=== PATIENT | male | born 1955 | race Caucasian/White ===

== ENCOUNTER → 2020-03-01 | Outpatient (CLI) | payer OTHER ==
--- NOTE | 2020-03-01 09:42 | MR ---
EXAMINATION TYPE: MR shoulder RT wo con DATE OF EXAM: 03/01/2020 COMPARISON: None. HISTORY: Rt shoulder pain, pain with difficulty raising arm over head for 7 months since falling inju ry per patient. TECHNIQUE: Multiplanar, multisequence imaging of the right shoulder is performed without contrast. FINDINGS: Rotator Cuff: There is large retracted articular surface tear involving anterior 2/3 of the distal ingram praspinatus tendon measuring 13 mm AP diameter sagittal image 8 x 13 mm transversely coronal image 12 . Some of the more posterior fibers remain intact with increased signal. Infraspinatus tendon is inta ct. Subscapularis tendon intact. Surrounding fluid is noted. Rotator cuff muscle bulk is maintained. Acromioclavicular Joint: Moderate narrowing with mild capsular hypertrophy, preservation of underlyin g fat plane. Distal acromion morphology slightly downsloping with loss of underlying fat plane. Glenohumeral Joint: Mild to moderate narrowing with small joint effusion. No significant spurring. Labrum: The labrum appears grossly intact given limitation of non-arthrogram study. Biceps Tendon: The long head of biceps is in normal location within bicipital groove. Bone marrow signal: There is a 6 mm subchondral cyst involving the lateral humeral head coronal image 14. Other: No additional significant abnormality is appreciated. IMPRESSION: 1. Retracted significant tear involving anterior 2/3-3/4 of the distal supraspinatus tendon. 2. Mild to moderate degenerative changes right shoulder, downsloping acromion with MRI evidence of un derlying impingement. Correlate clinically.
== END | disposition home or self-care (01) ==
LOC: RADMRIMAIN 08:18
DX: M19.011 Primary osteoarthritis, right shoulder (principal); S46.811A Strain of other muscles, fascia and tendons at shoulder and upper arm level, right arm, initial encounter; M25.811 Other specified joint disorders, right shoulder

== ENCOUNTER → 2020-03-24 | Outpatient (CLI) | payer OTHER | END | disposition home or self-care (01) | LOC: LABPAT 10:17 | PROVIDERS: ATTEND Orthopaedic Surgery | DX: Z53.9 Procedure and treatment not carried out, unspecified reason (principal) ==

== ENCOUNTER 2020-04-16 06:04 | Day surgery (SDC) | payer OTHER ==
--- NOTE | 2020-04-15 13:56 | HP ---
HISTORY AND PHYSICAL CHIEF COMPLAINT: Right shoulder pain. HISTORY OF PRESENT ILLNESS: The patient is a 64-year-old, left-hand dominant, retired gentleman who presents with right shoulder pain after an injury August of 2019. He fell going up some stairs, injuring his shoulder. He notes lateral pain ever since. He is having difficult time with overhead use and at night. He has tried ibuprofen without much relief. PAST MEDICAL HISTORY: Significant for neuropathy. PAST SURGICAL HISTORY: Significant for bilateral ankle surgery. CURRENT MEDICATIONS: Ibuprofen and duloxetine. ALLERGIES: He denies drug allergies. FAMILY HISTORY: Negative. SOCIAL HISTORY: Significant for occasional alcohol use. REVIEW OF SYSTEMS: Sixteen-point review of systems otherwise reviewed and is noncontributory. PHYSICAL EXAMINATION: On examination, the patient is approximately 5 feet 11 inches, 214 pounds of mesomorphic habitus. HEENT exam is nonfocal. Neck is supple. On examination of the right shoulder, he is tender about the anterior subacromial space. He has moderate subacromial crepitus. Active range of motion forward elevation 70 degrees, external rotation with arm at side 30 degrees, internal rotation to L5. Passively I am able to forward elevate him 95 degrees. Motor strength is 4 minus over 5 for abduction and external rotation. Impingement test, Neer test are positive. Speed test is positive. His distal neurovascular exam appears intact in the right upper extremity. X-rays of the right shoulder obtained in the office show a type 2 acromion with maintained humeral head to acromial distance. MRI report 03/01/2020 right shoulder shows evidence of a retracted supraspinatus tendon tear. IMPRESSION: Symptomatic right rotator cuff tear. RECOMMENDATIONS: I talked to the patient at length regarding his condition and treatment options. At this point, he is having significant pain and limitation despite previous conservative measures. After thorough discussion, he opts to proceed with surgery. We will plan to proceed with arthroscopic evaluation with probable subacromial decompression in addition to rotator cuff repair versus debridement. We will likely perform that as an outpatient procedure. Risks and benefits were discussed at length in layman's terms. MMODL / IJN: [id number] /
[~2020-04-16 06:04] MED LIST: DEXAMETHASONE SOD PHOSPHATE 4 MG/ML 1 ML VIAL IV ONE; HYDROmorphone 0.5 MG/0.5 ML SYRINGE IVP PRN; LACTATED RINGERS 1,000 ML IV SCH; LIDOCAINE 1% (10MG/ML) FOR IV START INTRADERMA PRN; MIDAZOLAM 2 MG/2 ML VIAL IV PRN; ONDANSETRON 4 MG/2 ML VIAL IVP ONE; fentaNYL (PF) 50 MCG/ML 2 ML AMP IVP PRN
[2020-04-16] MEDS ORDERED: SUCCINYLCHOLINE CHLORIDE 100 MG/5 ML SYR IV ONE (07:42)
[2020-04-16] MEDS ORDERED: LIDOCAINE 1% INJ 10MG/ML (20 ML MDV) ONE (07:42)
[2020-04-16] MEDS ORDERED: DEXAMETHASONE SOD PHOSPHATE 4 MG/ML 1 ML VIAL ONE (07:42)
[2020-04-16] MEDS ORDERED: ROPIVACAINE 5 MG/ML 30 ML VIAL ONE (07:42)
[2020-04-16] MEDS ORDERED: fentaNYL (PF) 50 MCG/ML 2 ML AMP ONE (07:42)
[2020-04-16] MEDS ORDERED: MIDAZOLAM 2 MG/2 ML VIAL ONE (07:42)
[2020-04-16] MEDS ORDERED: PROPOFOL 10 MG/ML 20 ML VIAL IV ONE (07:42)
[2020-04-16] MEDS ORDERED: SODIUM CHLORIDE 0.9% 100 ML with ceFAZolin 2,000 MG IV ONE ×2 (08:08)
--- NOTE | 2020-04-16 09:14 | P.OP ---
Date of Procedure: 04/16/20 Preoperative Diagnosis: Symptomatic right rotator cuff tear Postoperative Diagnosis: Same in addition to adhesive capsulitis Procedure(s) Performed: Right shoulder arthroscopic subacromial decompression/rotator cuff repair/manipulation under anesthesia Implants: Arthrex 5.5 mm swivel lock anchor 2 Anesthesia: SONYA, [facility] Surgeon: Feliberto Sanabria Estimated Blood Loss (ml): 10 Pathology: none sent Condition: stable Disposition: PACU Indications for Procedure: The patient's a 64-year-old gentleman who presents with persistent/progressive right shoulder weakness/stiffness/and pain despite conservative measures after a previous injury. A discussion of the risks and benefits of operative intervention versus continued conservative measures was made with patient. He opted to proceed with surgery. Operative risks to include infection, neurovascular injury, development of blood clots, possible tendon rerupture, possible postoperative stiffness and need for subsequent procedures was discussed. Informed consent was obtained. Operative Findings: As below Description of Procedure: The patient was brought to the operating room, and after induction of general anesthesia was placed in a beachchair position. A preoperative interscalene block was placed for postoperative analgesia. I examined the right shoulder. There was significant limitation of passive motion. Gentle manipulation was p erformed first with the arm at the side obtaining full external rotation. Moderate adhesions were encountered. I then obtained full forward elevation. Again I encountered moderate adhesions. The right upper extremity was prepped and draped in normal fashion. The bony outlines the acromion, distal clavicle, and coracoid process were outlined with a skin marker. The glenohumeral joint was inflated with 50 mL of saline utilizing a spinal needle from posterior approach. A posterior portal was made through a 5 mm skin incision 1 cm medial and inferior to the posterior lateral border time. A blunt trocar was used to easily into the joint. Diagnostic arthroscopy was performed. An anterior portal was made just lateral to the coracoid process entering the joint above the subscapularis tendon. The subscapularis tendon appeared to be intact. Anterior labrum was intact. The inferior recess was inspected. The posterior labrum was intact. The intra-articular portion the biceps appeared to be intact. On inspection the rotator cuff, a full-thickness tear involving the anterior aspect the supraspinatus was noted with minimal retraction. The arthroscope was placed into the subacromial space. A lateral portal was made 2 centimeters inferior to the anterior lateral border of the acromion. The rotator cuff was then mobilized with a traction suture. This was then easily brought back to the greater tuberosity. The soft tissue on the undersurface of the acromion was debrided with a motorized shaver and electrocautery clearly defining the anterior medial and lateral borders as well as the distal clavicle. An anterior inferior acromioplasty was performed with a motorized kaleb starting anterolateral, then extending this posteriorly, then extending this medially. I converted to a flat acromion and this was verified in the posterior and lateral viewing portals. The greater tuberosity was lightly decorticating with a shaver down to a bleeding bony surface. An accessory superior lateral portals made just off the lateral edge of the acromion for anchor placement. One anchor was then placed just off the articular surface with the appropriate starting awl. A 5.5 mm swivel lock anchor loaded with #2 fiber tape was placed. Good purchase was obtained. These fiber tapes were then passed the rotator cuff with a scorpion suture passer. A lateral row was created crisscrossing these tapes and utilizing the traction suture. 5.5 mm swivel lock anchor was placed laterally. Good purchase was obtained. Final arthroscopic view showed adequate compression at the footprint. The arthroscope was then removed. The portals were closed with simple 3-0 nylon sutures. A sterile dressing was applied in addition to a sling. The patient was then awoken from general anesthesia and transferred to recovery room in good condition. Blood loss was estimated at 10 mL. No complications were incurred. Sponge and needle counts were correct in the case.
[2020-04-16 09:22] VITALS: TEMP 97
[2020-04-16 10:04] VITALS: RESP 16
[2020-04-16 10:26] VITALS: BP 159/86; PULSE 70
== END 2020-04-16 11:02 | disposition home or self-care (01) ==
LOC: OR 06:04
PROVIDERS: ATTEND Orthopaedic Surgery
DX: S46.011A Strain of muscle(s) and tendon(s) of the rotator cuff of right shoulder, initial encounter (principal); M75.01 Adhesive capsulitis of right shoulder; L30.9 Dermatitis, unspecified; N40.0 Benign prostatic hyperplasia without lower urinary tract symptoms; R97.20 Elevated prostate specific antigen [PSA]; M25.572 Pain in left ankle and joints of left foot; G62.9 Polyneuropathy, unspecified; J30.9 Allergic rhinitis, unspecified; F41.9 Anxiety disorder, unspecified; Z98.890 Other specified postprocedural states; Z79.1 Long term (current) use of non-steroidal anti-inflammatories (NSAID); Z79.899 Other long term (current) drug therapy; Z90.89 Acquired absence of other organs; Z80.42 Family history of malignant neoplasm of prostate; W10.9XXA Fall (on) (from) unspecified stairs and steps, initial encounter
CPT/HCPCS: 29827; 29826; 64415; 76942; C1713 ×2; C1894; J2250; J1100; J2405; J0690; J2001; J3010; J2795; J0330; J2704

== ENCOUNTER → 2021-06-27 | Outpatient (CLI) | payer OTHER ==
--- NOTE | 2021-06-27 15:53 | CT ---
EXAMINATION TYPE: CT chest wo con DATE OF EXAM: 06/27/2021 INDICATION: pt was in [place] around the [place] and c/o of cough from exposure CT DLP: 695 mGy.cm Automated Exposure Control for Dose Reduction was Utilized. TECHNIQUE AND CONTRAST: CT scan of the chest without IV contrast administration. COMPARISON: None available. FINDINGS: Hyper translucent lungs which may suggest COPD, please correlate with pulmonary function tests. 4 mm nodule is seen at the medial aspect of the right upper lobe. Elongated 6 cm nodule along the left obl ique fissure, possibly representing a perifissural lymph node. Other scattered smaller bilateral pulm onary nodules. Unremarkable lungs otherwise. Patent central airways. No cardiomegaly. Scattered arterial atheroscler otic calcifications. No pleural or pericardial effusion. No pathologically enlarged lymph nodes in th e chest by this nonenhanced CT scan. The ascending aorta measures 4 cm. Tiny splenic hypodensity, possibly representing a splenic cyst. Il l-defined subtle hypodensity is seen at the superior aspect of the spleen measuring 8mm, for further targeted ultrasound assessment. Degenerative changes of the thoracic spine. IMPRESSION: Suspected COPD changes, please correlate with pulmonary function tests. Scattered pulmonary nodules measuring up to 6 mm as described above, nonspecific. Precautionary follo w-up CT scan in 3-6 months is advised. Other incidental findings as detailed above.
== END | disposition home or self-care (01) ==
LOC: RADCTMAIN 15:25
DX: R91.8 Other nonspecific abnormal finding of lung field (principal)
CPT/HCPCS: 71250

== ENCOUNTER → 2022-06-08 | Outpatient (CLI) | payer OTHER ==
[2022-06-08 11:17] LABS: African American GFR (CKD) >90 (>60 ml/min/1.73 sqM); Blood Urea Nitrogen 18 mg/dL (9-20); Non-African American GFR(CKD) >90 (>60 ml/min/1.73 sqM)
--- NOTE | 2022-06-08 12:18 | CT ---
EXAMINATION TYPE: CT chest w con CT DLP: 626 mGycm, Automated exposure control for dose reduction was used. DATE OF EXAM: 06/08/2022 11:51 AM COMPARISON: 09/29/2021, 06/27/2021 CLINICAL INDICATION:Male, 66 years old with history of R91.8 OTHER NONSPECIFIC ABNORMAL FINDING OF GINGER NG F, Lung nodule. TECHNIQUE: Multiple axial images were obtained through the chest. Sagittal and coronal reformats were created for review. Contrast used:100ml mL of Isovue 300 with IV Contrast Oral contrast used: none. FINDINGS: LUNGS/ PLEURA: Right upper lung medial posterior pulmonary nodule measuring 5a mm given differences i n slice selection. Left major fissure intrafissural lymph node is unchanged. AIRWAY: Patent and unremarkable. HEART: Size within normal limits. MEDIASTINUM: No gross evidence of adenopathy. VASCULATURE: No aortic aneurysm. MUSCULOSKELETAL: No acute osseous abnormalities SOFT TISSUES/LYMPH NODES: Unremarkable. LOWER NECK: Stable right thyroid nodule measuring 19 mm. UPPER ABDOMEN: Splenic hypodensity which could represent a cyst versus hemangioma. IMPRESSION: Stable pulmonary nodules, consider yearly surveillance with CT low-dose lung cancer screening if the patient meets criteria.
== END | disposition home or self-care (01) ==
LOC: RADCTMAIN 10:02
PROVIDERS: ATTEND Internal Medicine Critical Care Medicine
DX: R91.8 Other nonspecific abnormal finding of lung field (principal)
CPT/HCPCS: 82565; 84520; 71260; 36415; Q9967

== ENCOUNTER → 2023-07-19 | Outpatient (CLI) | payer OTHER ==
--- NOTE | 2023-07-19 14:37 | US ---
EXAMINATION TYPE: US extremity nonvasc mass LT DATE OF EXAM: 07/19/2023 COMPARISON: NONE CLINICAL INDICATION: Male, 67 years old with history of R22.9 LOCALIZED SWELLING MASS LUMP; Swelling and lump on left lateral side/hip x 20 years. Pt states it is not painful. TECHNIQUE: Area of left lateral side/hip scanned FINDINGS: Multiple hyperechoic areas seen with vascularity. Largest is measuring 0.8 x 0.9 x 0.7cm. The tissue appears more heterogeneous compared to the right side. IMPRESSION: Multiple small subcentimeter diffusely hyperechoic soft tissue masses in the area of cli nical concern. These possibly represent lipomas. If there is a clinical concern, then CT or MRI would be useful for further evaluation.
== END | disposition home or self-care (01) ==
LOC: RADUSWWP 12:50
DX: R22.42 Localized swelling, mass and lump, left lower limb (principal)

== ENCOUNTER → 2023-08-08 | Outpatient (CLI) | payer OTHER ==
--- NOTE | 2023-08-08 13:37 | CT ---
EXAMINATION TYPE: CT hip LT w con CT DLP: 757 mGycm, Automated exposure control for dose reduction was used. DATE OF EXAM: 08/08/2023 12:27 PM COMPARISON: Ultrasound extremity 07/19/2023 CLINICAL INDICATION:Male, 67 years old with history of R22.9 LOCALIZED SWELLING, MASS AND LUMP, UNSPE CIFI; PHH, left hip sweeling pt states feels like fatty lumps along L side/hip. TECHNIQUE: Axial images were obtained of the left hip after the uneventful administration of 100 mL o f Isovue-300 intravenously. Additional coronal and sagittal reformatted images and soft tissue and ujan ne window were obtained for review. 3-D reconstruction was created on a separate workstation. FINDINGS: There is no evidence of fracture, subluxation, or dislocation. No aggressive osseous lesion . No significant soft tissue swelling or joint effusion is identified. No focal muscular atrophy or edema is identified. No radiopaque foreign body identified. Degenerative disc disease of the lumbar s pine. There are grouped small hyperattenuating subcentimeter lesions within the left lateral side/hip soft tissues (series 3, image 6). These correspond to ultrasound findings. No definitive internal fa t identified. Difficult to characterize due to small size. No abnormal contrast enhancement. Few pelv ic phleboliths. Enlarged prostate gland with coarse central calcifications. This measures up to 5.6 cm. A few sigmoid diverticula. IMPRESSION: Several small subcentimeter hyperattenuating lesions identified within the left lateral side/hip soft tissues corresponding to prior ultrasound. No internal fat attenuation. Possibly represent fat necro sis/scarring versus other etiologies. Likely benign. Consider follow-up ultrasound in 6 months to ass ess for interval change.
== END | disposition home or self-care (01) ==
LOC: RADCTMAIN 11:25
PROVIDERS: ATTEND Family Medicine
DX: R22.9 Localized swelling, mass and lump, unspecified (principal)
CPT/HCPCS: 73701; Q9967

== ENCOUNTER 2023-08-15 10:47 | Day surgery (SDC) | payer OTHER ==
[2023-08-15] MEDS: LACTATED RINGERS 1,000 ML IV SCH (11:43)
[2023-08-15 11:45] VITALS: RESP 16; TEMP 97.4
[2023-08-15] MEDS: IV FLUID CONTINUATION 1,000 ML IV ONE (11:45)
[2023-08-15] MEDS ORDERED: PROPOFOL 10 MG/ML 20 ML VIAL IV ONE (12:13)
--- NOTE | 2023-08-15 12:34 | P.PCN ---
Date of Procedure: 08/15/23 Procedure(s) Performed: BRIEF HISTORY: Patient is a 67-year-old pleasant white male scheduled for an elective colonoscopy as a part of evaluation by history of colon polyps. Last colonoscopy was 7 years ago. PROCEDURE PERFORMED: Colonoscopy with biopsy and snare polypectomy. PREOPERATIVE DIAGNOSIS: History of colon polyps. IV sedation per Anesthesia. PROCEDURE: After informed consent was obtained, the patient, was brought into the endoscopy unit. IV sedation was administered by Anesthesia under continuous monitoring. Digital rectal examination was normal. Initially the Olympus CF-160 flexible video colonoscope was then inserted in the rectum, gradually advanced into the cecum without any difficulty. Careful examination was performed as the scope was gradually being withdrawn. Ileocecal valve and the appendiceal orifice were visualized and appeared normal. Prep was excellent. Mucosa of the cecum, appeared normal. The ascending colon there was a 4 mm sessile polyp removed by cold biopsy. In the transverse colon there was a 7 mm polyp that was removed by cold snare polypectomy. Rest of the ascending colon, transverse colon, descending colon, sigmoid colon, and rectum appeared normal. Retroflexion was performed in the rectum and no lesions were seen. The patient tolerated the pr ocedure well. IMPRESSION: 4 mm ascending colon polyp status post cold biopsy 7 mm transverse colon polyp status post cold snare polypectomy Rest of the colon appeared normal RECOMMENDATIONS: Findings of this examination were discussed with the patient as well as his family. He was advised to follow-up with the biopsy results. If the biopsy reveals adenoma he can have repeat colonoscopy 5 years.
[2023-08-15 12:55] VITALS: BP 130/85; PULSE 69
== END 2023-08-15 13:21 | disposition home or self-care (01) ==
LOC: ORWHC2ENDO 10:47
PROVIDERS: ATTEND Internal Medicine Gastroenterology
DX: Z12.11 Encounter for screening for malignant neoplasm of colon (principal); D12.2 Benign neoplasm of ascending colon; D12.3 Benign neoplasm of transverse colon; J45.909 Unspecified asthma, uncomplicated; Z86.010 Personal history of colon polyps; Z85.46 Personal history of malignant neoplasm of prostate; Z79.51 Long term (current) use of inhaled steroids; Z79.899 Other long term (current) drug therapy
CPT/HCPCS: 88305; 45380; 45385; J2704

== ENCOUNTER → 2024-02-21 | Outpatient (CLI) | payer OTHER ==
--- NOTE | 2024-02-21 13:28 | CT ---
EXAMINATION TYPE: CT chest wo con DATE OF EXAM: 02/21/2024 COMPARISON: 06/08/2022 CLINICAL INDICATION: Male, 68 years old with history of D17.30 BENIGN LIPOMATOUS; R911 SOLITARY PULMO NARY; PHH, lung nodules TECHNIQUE: CT scan of the thorax is performed without IV contrast. CT DLP: [address] CTDI: mGy Automated exposure control for dose reduction was used. FINDINGS: There is a stable 5 mm nodule in the right upper lobe. There are a few stable scattered micronodules. There is no new or suspicious lung mass or nodule. There is no airspace consolidation. There is no abnormal interstitial density. There is no pleural effusion or pneumothorax. Great vessels chest normal. There is no mediastinal, hilar or axillary adenopathy. Limited scanning through the upper abdomen reveals no gross abnormality. No focal osseous lesions are seen. IMPRESSION: 1. Stable bilateral nodules as described above. They are stable and likely benign.. Routine screening yearly intervals is recommended. 2. No acute cardiopulmonary disease. [facility], , 02/21/2024 1:26 PM
--- NOTE | 2024-02-21 14:23 | US ---
EXAMINATION TYPE: US extremity nonvasc mass LT DATE OF EXAM: 02/21/2024 COMPARISON: NONE CLINICAL INDICATION: Male, 68 years old with history of D1730 BENIGN LIPOMA; left upper hip, flank re bradford has multiple palpables ongoing for years, patient told they are lipomas and scar tissue TECHNIQUE: Soft tissue scan FINDINGS: Multiple hyperechoic lesions may represent lipomas, largest = 0.8 x 1.5 x 0.4cm IMPRESSION: 1. Scattered small subcutaneous echogenic areas likely related to lipomas. If these are changing, MRI with contrast could be utilized for further evaluation. [facility], , 02/21/2024 2:20 PM
== END | disposition home or self-care (01) ==
LOC: RADCTMAIN 12:41
PROVIDERS: ATTEND Family Medicine
DX: D17.30 Benign lipomatous neoplasm of skin and subcutaneous tissue of unspecified sites (principal); R91.1 Solitary pulmonary nodule
CPT/HCPCS: 71250

== ENCOUNTER → 2024-02-22 | Outpatient (CLI) | payer OTHER ==
--- NOTE | 2024-02-25 07:58 | MR ---
EXAMINATION TYPE: MR shoulder LT wo con DATE OF EXAM: 02/22/2024 5:11 PM COMPARISON: None. CLINICAL INDICATION: Male, 68 years old with history of S46.012A ROTATOR CUFF STRAINED, Left shoulder pain since Dec 14, 2023 after cleaning gutters, Difficult to raise arm, rotator cuff strain injury IV Contrast: cc (None if empty) TECHNIQUE: Multiplanar, multisequence imaging of the left shoulder is performed without contrast. FINDINGS: Rotator Cuff: Infraspinatus tendon is intact. Increased signal in the distal supraspinatus muscle bul k. Increased signal in the supraspinatus tendon with focal full-thickness tear near the articular nic face coronal image 14. Heterogeneous but intact subscapularis tendon with surrounding fluid. Rotator cuff muscle bulk is preserved. Acromioclavicular Joint: Moderate narrowing greatest posteriorly. [id number]-[id number]-bjfatyte capsular hypertrop hy. Glenohumeral Joint: Moderate size joint effusion. Narrowing is present. No significant spurring is se en. Labrum: The labrum appears grossly intact given limitation of non-arthrogram study. Biceps Tendon: The long head of biceps is in normal location within bicipital groove. Bone marrow signal: No focal abnormal marrow signal is appreciated. Other: No additional significant abnormality is appreciated. IMPRESSION: 1. [id number]-[id number] degenerative changes are present as detailed above. Moderate-sized glenohumeral j oint effusion noted. 2. Tendinosis of the subscapularis tendon. More prominent tendinosis and partial tearing of the supra spinatus tendon. [facility], , 02/25/2024 7:55 AM
== END | disposition home or self-care (01) ==
LOC: RADMRIMAIN 16:12
PROVIDERS: ATTEND Social Worker Clinical
DX: S46.012A Strain of muscle(s) and tendon(s) of the rotator cuff of left shoulder, initial encounter (principal); M25.412 Effusion, left shoulder; M67.814 Other specified disorders of tendon, left shoulder; X58.XXXA Exposure to other specified factors, initial encounter; M19.012 Primary osteoarthritis, left shoulder

== ENCOUNTER 2024-04-04 07:23 | Day surgery (SDC) | payer OTHER ==
--- NOTE | 2024-04-03 09:32 | P.HPOR ---
History of Present Illness H&P Date: 04/03/24 Chief Complaint: Left shoulder pain The patient is a 68-year-old cefm-yciz-idwsczja retired male who presents with left shoulder pain that began in December 2023. He was cleaning his gutters when he felt a pop in his shoulder. He has had pain with overhead use and at night ever since. He has tried medications in addition to therapy without much relief. He notes daily pain. Review of Systems Per HPI Past Medical History Past Medical History: Asthma, COPD, Prostate Disorder Additional Past Medical History / Comment(s): OLDER INJURY TO RIGHT SHOULDER. Hx. BILATERAL ANKLE FRACTURES, peripheral neuropathy bilat. LE, per Dr. Angel's clearance - pulmonary nodules, malignant prostate tumor History of Any Multi-Drug Resistant Organisms: None Reported Past Surgical History: Tonsillectomy Additional Past Surgical History / Comment(s): REMOVED LUMP ON BACK-NEG. COLONOSCOPY, Rt. shoulder surgery Past Anesthesia/Blood Transfusion Reactions: No Reported Reaction Smoking Status: Never smoker - Past Family History Mother Family Medical History: Pulmonary Embolus Father Family Medical History: Cancer Additional Family Medical History / Comment(s): prostate cancer Medications and Allergies Home Medications Medication Instructions Recorded Confirmed Type Multivitamins, Thera [Multivitamin 1 tab PO DAILY 04/13/20 04/02/24 History (formulary)] De [place]ter-3 Fatty Acids/Fish Oil [Fish 1 cap PO DAILY 04/13/20 04/02/24 History Oil 1,000 mg Softgel] Albuterol Inhaler [Ventolin Hfa 1 - 2 puff INHALATION Q6H PRN 08/10/23 04/02/24 History Inhaler] Fluticasone Nasal [place] [Flonase 2 spray EA NOSTRIL DAILY PRN 08/10/23 04/02/24 History Nasal [place]] Fluticasone Propion/Salmeterol 1 inhalation PO BID 08/10/23 04/02/24 History [Wixela 500-50 Inhub] Glucosamine/Chondr Hernandez A Sod [Osteo 1 each PO DAILY 08/10/23 04/02/24 History Bi-Flex Caplet] Montelukast [Singulair] 10 mg PO HS 08/10/23 04/02/24 History Turmeric Root Extract [Turmeric 500 mg PO DAILY 08/10/23 04/02/24 History Curcumin] Vitamin D3/Vitamin K2 (Mk4) 1 each PO DAILY 08/10/23 04/02/24 History [Vitamin K2 Plus D3 Tablet] Allergies Allergy/AdvReac Type Severity Reaction Status Date / Time No Known Allergies Allergy Verified 04/02/24 08:14 Physical Examination - Shoulder left Tenderness with palpation: anterior, bicipital groove Pain: with abduction, with forward flexion ROM: forward flexion: 120 degrees ROM: internal rotation: lower lumbar ROM: external rotation: 60 degrees Strength: abduction: 3/5 Strength: external rotation: 4/5 Tests: internal impingement tests: positive, external impingment tests: positive Results The patient is a well-developed well-nourished male approximately 5 foot 11, 225 pounds of endomorphic habitus. HEENT exam is nonfocal, neck is supple. He is tender about the left shoulder anterior subacromial space. Mild crepitus is noted. Impingement test, Speed test, and Neer test are positive. His distal neurovascular exam appears intact in the left upper extremity. - Diagnostic results Shoulder MRI: image reviewed (MRI of the left shoulder shows evidence of a full- thickness tear involving the supraspinatus tendon.) Assessment and Plan Assessment: Left acute rotator cuff tearsymptomatic Left proximal bicipital tendinosis Plan: I talked to the patient at length regarding his condition along with treatment options. At this point he remains quite symptomatic having pain and weakness after this acute injury despite conservative measures. After a thorough discussion he opts to proceed with surgery. We will plan to proceed with left shoulder arthroscopy with probable subacromial decompression, rotator cuff repair, and possible biceps tenotomy. Risks and benefits were discussed at length in layman's terms. We will likely perform that as an outpatient procedure.
[~2024-04-04 07:23] MED LIST changes: -DEXAMETHASONE SOD PHOSPHATE 4 MG/ML 1 ML VIAL IV ONE; -LACTATED RINGERS 1,000 ML IV SCH; -LIDOCAINE 1% (10MG/ML) FOR IV START INTRADERMA PRN; -MIDAZOLAM 2 MG/2 ML VIAL IV PRN; -ONDANSETRON 4 MG/2 ML VIAL IVP ONE; -fentaNYL (PF) 50 MCG/ML 2 ML AMP IVP PRN
[2024-04-04] MEDS: LACTATED RINGERS 1,000 ML IV SCH (08:15)
[2024-04-04] MEDS: ONDANSETRON 4 MG/2 ML VIAL IVP ONE (08:15)
[2024-04-04] MEDS: DEXAMETHASONE SOD PHOSPHATE 4 MG/ML 1 ML VIAL IV ONE (08:15)
[2024-04-04] MEDS: MIDAZOLAM 2 MG/2 ML VIAL IV PRN (08:17)
[2024-04-04] MEDS: IV FLUID CONTINUATION 1,000 ML IV ONE (08:34)
[2024-04-04] MEDS ORDERED: DEXAMETHASONE SOD PHOSPHATE 4 MG/ML 1 ML VIAL ONE (08:54)
[2024-04-04] MEDS ORDERED: LIDOCAINE 1% INJ 10MG/ML (20 ML MDV) ONE (08:54)
[2024-04-04] MEDS ORDERED: fentaNYL (PF) 50 MCG/ML 2 ML AMP ONE (08:54)
[2024-04-04] MEDS ORDERED: PHENYLEPHRINE-0.9% NACL SYG 1,000 MCG/10 ML SYRINGE ONE (08:54)
[2024-04-04] MEDS ORDERED: PROPOFOL 10 MG/ML 20 ML VIAL IV ONE (08:54)
[2024-04-04] MEDS ORDERED: ROPIVACAINE 5 MG/ML 30 ML VIAL ONE (08:54)
[2024-04-04] MEDS ORDERED: MIDAZOLAM 2 MG/2 ML VIAL ONE (08:54)
[2024-04-04] MEDS ORDERED: SUCCINYLCHOLINE CHLORIDE 200 MG/10 ML VIAL IV ONE (08:54)
[2024-04-04] MEDS: EPINEPHrine (PF) 1 ML in SODIUM CHLORIDE 0.9% IRRIGATIO 3,000 ML IRRIGATION ONE ×4 (09:32)
[2024-04-04] MEDS: LACTATED RINGERS 1,000 ML IV ONE (09:48)
--- NOTE | 2024-04-04 10:30 | P.OP ---
Date of Procedure: 04/04/24 Preoperative Diagnosis: Left rotator cuff tear Postoperative Diagnosis: 3 cm left rotator cuff tear involving the supraspinatus and infraspinatus Procedure(s) Performed: Left shoulder arthroscopic subacromial decompression/rotator cuff repair Implants: Arthrex 4.75 mm swivel lock anchor x 2, 5.5 mm swivel lock anchor x 2 Anesthesia: jess HASSAN Surgeon: Feliberto Sanabria Graphics Edit Technician #1: Jhoan García Estimated Blood Loss (ml): 10 Pathology: none sent Condition: stable Disposition: PACU Indications for Procedure: The patient is a 68-year-old male who presents with progressive left shoulder pain despite conservative measures. A discussion of the risks and benefits of operative intervention versus continued conservative measures was made with the patient. He opted to proceed with surgery. Operative risks include infection, neurovascular injury, development of blood clots, possible tendon rerupture, possible postoperative stiffness, possible need for subsequent procedures was discussed. Informed consent was obtained. Operative Findings: As below Description of Procedure: The patient was brought to the operating room, and after induction of general anesthesia was placed in a beachchair position. A preoperative interscalene block was placed for postoperative analgesia. I examined the left shoulder. There was no gross block to passive motion or gross glenohumeral instability. The left upper extremity was prepped and draped in normal fashion. The bony outlines the acromion, distal clavicle, and coracoid process were outlined with a skin marker. The glenohumeral joint was inflated with 50 mL of saline utilizing a spinal needle from posterior approach. A posterior portal was made through a 5 mm skin incision 1 cm medial and inferior to the posterior lateral border time. A blunt trocar was used to easily into the joint. Diagnostic arthroscopy was performed. An anterior portal was made just lateral to the coracoid process entering the joint above the subscapularis tendon. The subscapularis tendon appeared to be intact. Anterior labrum was intact. The inferior recess was inspected. The posterior labrum was intact. The biceps and its anchor appear to be intact. On inspection the rotator cuff, a full- thickness tear involve the supraspinatus and a portion of the infraspinatus was noted without significant retraction. The arthroscope was placed into the subacromial space. A lateral portal was made 2 centimeters inferior to the anterior lateral border of the acromion. The rotator cuff was then mobilized with a traction suture. This was then easily brought back to the greater tuberosity. The soft tissue on the undersurface of the acromion was debrided with a motorized shaver and electrocautery clearly defining the anterior medial and lateral borders as well as the distal clavicle. An anterior inferior acromioplasty was performed with a motorized kaleb starting anterolateral, then extending this posteriorly, then extending this medially. I converted to a flat acromion and this was verified in the posterior and lateral viewing portals. The greater tuberosity was lightly decorticating with a shaver down to a bleeding bony surface. An accessory superior lateral portals made just off the lateral edge of the acromion for anchor placement. 2 anchors were then placed just off the articular surface with the appropriate starting awl. 4.75 mm anchors preloaded with #2 fiber tape were placed. Good purchase was obtained. These fiber tapes were then passed the rotator cuff with a scorpion suture passer. A lateral row was created crisscrossing these tapes. 5.5 mm swivel lock anchors x2 were placed laterally. Good purchase was obtained. Final arthroscopic view showed adequate compression at the footprint. The arthroscope was then removed. The portals were closed with simple 3-0 nylon sutures. A sterile dressing was applied in addition to an abductor brace. The patient was then awoken from general anesthesia and transferred to recovery room in good condition. Blood loss was estimated at 10 mL. No complications were incurred. Sponge and needle counts were correct in the case. Jhoan CARTER assisted and the major components of the case to include arm positioning, anchor placement, and rotator cuff repair.
[2024-04-04 10:42] VITALS: TEMP 96.8
[2024-04-04 11:49] VITALS: RESP 16
[2024-04-04 11:58] VITALS: PULSE 72
[2024-04-04 12:18] VITALS: BP 128/86
--- NOTE | 2024-04-04 12:49 | P.ANPRN ---
Procedure Note - Anesthesia - Nerve Block Performed Left Interscalene Single Time Out Performed: Yes Date of Procedure: 04/04/24 Procedure Start Time: : Procedure Stop Time: : Location of Patient: PreOp Indication: Acute Post-Operative Pain, Analgesia, Requested by Surgeon Sedation Type: Sedate with meaningful contact maintained Preparation: Sterile Prep Position: Sitting Catheter: None Needle Types: Pajunk Needle Gauge: 21 Ultrasound used to visualize needle placement: Yes Ultrasound used to observe medication spread: Yes Injectate: 0.5% Ropivacaine (see comment for volume) ([id number]) Blood Aspirated: No Pain Paresthesia on Injection Noted: No Resistance on Injection: Normal Image Stored and Saved: Yes Events: Uneventful and Well Tolerated
== END 2024-04-04 13:10 | disposition home or self-care (01) ==
LOC: OR 07:23
PROVIDERS: ATTEND Orthopaedic Surgery
DX: S46.012A Strain of muscle(s) and tendon(s) of the rotator cuff of left shoulder, initial encounter (principal); X50.1XXA Overexertion from prolonged static or awkward postures, initial encounter; Y93.H9 Activity, other involving exterior property and land maintenance, building and construction; G89.18 Other acute postprocedural pain; J44.89 Other specified chronic obstructive pulmonary disease; G62.9 Polyneuropathy, unspecified; K21.9 Gastro-esophageal reflux disease without esophagitis; Z79.51 Long term (current) use of inhaled steroids; Z79.899 Other long term (current) drug therapy; Z85.46 Personal history of malignant neoplasm of prostate
CPT/HCPCS: 29827; 29826; 64415; C1713 ×2; C1894; J2250; J0330; J1100; J0690; J2405; J0171; J2003; J3010; J2795; J2704; J2371; 64447